=== PATIENT | female | born 1960 | race Caucasian/White ===

== ENCOUNTER → 2023-02-08 10:45 | Outpatient (CLI) | payer OTHER, SELFPAY ==
--- NOTE | ~2023-02-08 | MR_ITS ---
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 Pain and swelling at the second toe after d ropping an object on the foot one year prior. TECHNIQUE: Magnetic resonance imaging (MRI) of the left fore/mid foot was performed without intraveno us contrast. Sequences included axial, sagittal and coronal T1-weighted FSE and T2-weighted FS FSE, a xial T1-weighted FS FSE and postcontrast axial T1-weighted FS FSE. COMPARISON: None FINDINGS: Postoperative changes at the base of the great toe consistent with likely prior bunionectomy and real ignment osteotomies with internal fixation at the neck of the first metatarsal and base of the first proximal phalanx. Bone alignment is normal. Low signal intensity bone island at the medial metaphysea l region of the distal tibia. Bone marrow signal is otherwise normal throughout with no fracture or p athologic marrow replacing process. Mild to moderate osteoarthritis at the first metatarsophalangeal joint. Additional mild polyarticular osteoarthritis at the subtalar, calcaneocuboid and multiple tars al metatarsal and interphalangeal joints. There is increased fluid and synovial enhancement at the se cond metatarsophalangeal joint suggesting an inflammatory arthritis. Stabilizing ligaments of the med ial lateral ankle, the Lisfranc ligament complex and the collateral ligament complex at the metatarso phalangeal and interphalangeal joints are normal. Visualized portions of the flexor and extensor tend ons are normal. Intrinsic musculature in the left foot is normal. No Velasquez's neuroma or other enhanc ing masses identified. The sinus Tarsi and tarsal tunnel are unremarkable. IMPRESSION: 1. Increased fluid signal and synovial enhancement at the second metatarsophalangeal joint which coul d be due to trauma or nonspecific inflammatory arthritis. 2. 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 Reviewed, dictated and finalized at location A. IMPRESSION: 1. Increased fluid signal and synovial enhancement at the second metatarsophala ngeal joint which could be due to trauma or nonspecific inflammatory arthritis. 2. 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
== END ==
PROVIDERS: PCP Internal Medicine
DX: G57.62 Lesion of plantar nerve, left lower limb (principal); M79.672 Pain in left foot; M19.072 Primary osteoarthritis, left ankle and foot
CPT/HCPCS: 73720; A9577